=== PATIENT | female | born 1950 | race Caucasian/White ===

== ENCOUNTER 2021-06-12 13:58 | Outpatient (RCR) | payer OTHER ==
[~2021-06-12 13:58] MED LIST: BYSTOLIC PO; BYSTOLIC10 MG PO; IRBESARTAN150 MG PO; MULTIVITAMIN PO
== END 2021-06-16 ==
LOC: PT 13:58
PROVIDERS: ATTEND Podiatrist Foot & Ankle Surgery
DX: M76.822 Posterior tibial tendinitis, left leg (principal)

== ENCOUNTER 2021-07-03 17:00 | Outpatient (RCR) | payer OTHER | END 2021-07-17 | LOC: PT 17:00 | PROVIDERS: ATTEND Podiatrist Foot & Ankle Surgery | DX: M76.822 Posterior tibial tendinitis, left leg (principal) ==